=== PATIENT | female | born 1935 | race Caucasian/White ===

== ENCOUNTER 2017-11-05 15:55 | Outpatient (CLI) | payer MEDICARE, BC | END 2017-11-05 15:56 | disposition home or self-care (01) | LOC: BICMAMMO 15:55 | PROVIDERS: ATTEND Family Medicine | DX: Z12.31 Encounter for screening mammogram for malignant neoplasm of breast (principal) | CPT/HCPCS: 77063; G0202; 77067 ==

== ENCOUNTER 2017-12-13 09:54 | Emergency (ER) | payer MEDICARE, BC | END 2017-12-13 10:23 | disposition home or self-care (01) | LOC: SCSER 09:54 | DX: S30.0XXA Contusion of lower back and pelvis, initial encounter (principal); I48.91 Unspecified atrial fibrillation; I10 Essential (primary) hypertension; Z79.899 Other long term (current) drug therapy; Z79.82 Long term (current) use of aspirin; W19.XXXA Unspecified fall, initial encounter | CPT/HCPCS: 99283 ==

== ENCOUNTER 2018-09-02 10:31 | Emergency (ER) | payer MEDICARE, BC ==
[2018-09-02 11:29] LABS: #Basophils 0.1 thou/uL (0.0-0.2); #Eosinphils 0.1 thou/uL (0.0-0.7); #Lymphocytes 1.2 thou/uL (1.20-3.40); #Monocytes 0.8 thou/uL (0.11-0.59); #Neutrophils 6.3 thou/uL (1.40-6.50); %Basophils 1.2 % (0.0-1.0); %Eosinophils 0.8 % (0.0-10.0); %Lymphocytes 14.5 % (21.0-51.0); %Monocytes 9.1 % (0.0-10.0); %Neutrophils 74.4 % (42.0-75.0); Hemoglobin 12.2 g/dL (12.0-16.0); Mean Corpuscular HGB CONC 32.3 g/dL (32.0-36.0); Mean Corpuscular Hemoglobin 32.8 pg (27.0-31.0); Mean Platelet Volume 8.8 fL (7.4-10.4); Platelet Count 121 thou/uL (130-400); RBC Distribution Width 12.6 % (11.5-14.5); Red Blood Cell (RBC) Count 3.73 mill/uL (4.20-5.40); White Blood Cell (WBC) Count 8.4 thou/uL (4.8-10.8)
[2018-09-02 11:40] LABS: ALT (SGPT) 22 U/L (8-55); AST (SGOT) 24 U/L (5-34); Albumin 3.8 g/dL (3.4-4.8); Alkaline Phosphatase 65 U/L (40-150); Anion Gap 13 mmol/L (10-20); BUN (Urea Nitrogen) 21 mg/dL (9.8-20.1); Calc. Creatinine Clearance 0 mL/min (70-130); Calcium 9.4 mg/dL (7.8-10.44); Carbon Dioxide 26 mmol/L (23-31); Chloride 107 mmol/L (98-107); Estimated GFR-MDRD 40; Globulin 2.8 g/dL (2.4-3.5); Glucose 102 mg/dL (83-110); Protein, Total 6.6 g/dL (6.0-8.3); Sodium 141 mmol/L (136-145)
[2018-09-02 11:41] LABS: CKMB 0.7 ng/mL (0-6.6); Troponin I Less than 0.010 ng/mL (< 0.028)
--- NOTE | 2018-09-02 11:42 | RAD ---
LEFT FOREARM 2 VIEWS: Date: 09/02/18 HISTORY: Fall with forearm pain. FINDINGS: There is a joint effusion present in the elbow. It is difficult to definitely demonstrate a fracture on these projections. The possibility of subtle radial head fracture should be considered. No other d efinite findings. IMPRESSION: Elbow joint effusion, questionable slight irregularity to the radial head. POS: [facility]
--- NOTE | 2018-09-02 11:43 | RAD ---
LEFT WRIST 3 VIEWS: Date: 09/02/18 HISTORY: Patient fell with wrist pain. FINDINGS: There are arthritic changes of the wrist. The bones are demineralized. Small bony density on the dors al side of the wrist. I think this is probably related to some calcification in the lunotriquetral li gament. I do not see a definitive fracture. IMPRESSION: No definite signs of fracture. POS: [facility]
--- NOTE | 2018-09-02 11:44 | RAD ---
CHEST TWO VIEWS: History: Fall. Comparison: Chest CT 07-31-17 FINDINGS: New from the comparison examination is lower thoracic vertebral body fracture, likely at T11. Right peripheral pleural blunting is present, new from the CT in 2017. Mild edema. Heart size is enla rged. IMPRESSION: 1. New burst type fracture, likely T11. If the patient is having neurological symptoms, CT would be r ecommended. 2. Mild cardiomegaly and pulmonary edema. 3. Peripheral pleural blunting on the right may be sequellae of a loculated effusion as it has convex borders. Again, CT examination may be helpful in this patient. POS: [facility]
--- NOTE | 2018-09-02 12:12 | RAD ---
LEFT ELBOW FOUR VIEWS: History: Fall. Comparison: None. FINDINGS: There is a moderate sized joint effusion. There is an impacted left radial neck fracture. Bones are o steopenic. IMPRESSION: Impacted left radial neck fracture with large joint effusion. POS: [facility]
[2018-09-02] MEDS ORDERED: HYDROcodone/Acetaminophen 5/325 mg Tablet ONE (14:15)
--- NOTE | 2018-09-02 14:15 | CT ---
CT CERVICAL SPINE PERFORMED WITHOUT CONTRAST ENHANCEMENT: Date: 09/02/18 HISTORY: Neck pain status post fall. FINDINGS: The vertebral bodies are normal in height. Degenerative disc narrowing is seen at C2-3, C3-4, C4-5, a nd some minimal changes at C5-6. The facets appear to be in normal alignment. There is some mild bila teral foraminal stenosis at C4-5. There is no central canal stenosis and there is no CT evidence for fracture. Bilateral apical pleural lung changes appear to be chronic in nature. IMPRESSION: No CT evidence of fracture of the cervical spine. POS: [facility]
--- NOTE | 2018-09-02 14:18 | CT ---
CT THORACIC SPINE PERFORMED WITHOUT CONTRAST ENHANCEMENT: Date: 09/02/18 HISTORY: Back pain after tripping and falling. FINDINGS: The bones are demineralized. There is a severe compression deformity of the T11 vertebral bodies. The re is bony retropulsion by approximately 5.0 mm with a mild to moderate degree of canal narrowing ass ociated with this. The vertebral body is fairly densely sclerotic and appearance is more of an older injury, although definitely not present on a 07/31/17 examination. There are no other bony findings t hat would suggest that this represents a pathologic fracture related to metastatic disease, although this would have to be a consideration. There is no perivertebral soft tissue swelling present. There are atelectatic changes of the right lower lobe. There are chronic appearing lung changes seen. IMPRESSION: 1. Severe bony demineralization. 2. Severe compression deformity of T11 with 5.0 mm of bony retropulsion. The vertebral body itself i s very sclerotic and much of these changes have more of a chronic appearance but they were definitely not present on the 07/31/17 study. The possibility of a pathologic fracture given the rather dense b vannesa sclerosis is not excluded. There is mild to moderate degree of canal stenosis associated with thi s. POS: [facility]
--- NOTE | 2018-09-02 14:26 | CT ---
CT LUMBAR SPINE: HISTORY: Fall. Back pain. FINDINGS: Axial images are obtained with coronal and sagittal reconstructions. CT images again demonstrate the T11 vertebral body fracture. T11-12: Unremarkable. T12-L1: Vacuum disk changes seen. No significant evidence of central or neural foraminal narrowing seen. L1-2: There is some irregularity seen in the inferior end plate of L1. No significant degree of weston tral or neural foraminal narrowing is seen. L2-3: Bilateral facet hypertrophy s seen. There is a mild broad-based disk bulge. Mild central and lateral recess stenosis seen. The neural foramen are patent. L3-4: Disk desiccation is seen. There is disk space height loss. There is broad-based posterior di sk-osteophyte complex compressing the thecal sac resulting in a moderate degree of central and latera l recess stenosis. Mild bilateral neural foraminal narrowing is seen due to facet hypertrophy as wel l as the disk-osteophyte complex at L3-4. L4-5: Disk space height loss is seen. There is a broad-based disk bulge with bilateral facet hypert rophy. Mild to moderate central and lateral recess stenosis seen. Mild to moderate bilateral neural foraminal narrowing is seen. L5-S1: There is bilateral facet hypertrophy seen. The central canal and neural foramen are patent. IMPRESSION: 1. Moderate to severe L3-4 central spinal stenosis. This is due to chronic degenerative changes and is not acute. 2. No acute lumbar spine abnormality seen. Please see accompanying dictation of the thoracic spine. POS: [facility]
== END 2018-09-02 18:40 ==
LOC: SCSER 10:31
DX: S52.125A Nondisplaced fracture of head of left radius, initial encounter for closed fracture (principal); S22.089A Unspecified fracture of T11-T12 vertebra, initial encounter for closed fracture; I10 Essential (primary) hypertension; I48.91 Unspecified atrial fibrillation; Z79.899 Other long term (current) drug therapy; Z79.82 Long term (current) use of aspirin; W01.0XXA Fall on same level from slipping, tripping and stumbling without subsequent striking against object, initial encounter
CPT/HCPCS: 36415; 71046; 72125; 72128; 72131; 80053; 82553; 84484; 85025; 93005; 96360

== ENCOUNTER 2018-09-11 18:00 | Emergency (ER) | payer MEDICARE, BC ==
[2018-09-11 18:40] LABS: #Eosinphils 0.1 thou/uL (0.0-0.7); #Lymphocytes 1.7 thou/uL (1.20-3.40); #Neutrophils 4.7 thou/uL (1.40-6.50); %Basophils 0.5 % (0.0-1.0); %Eosinophils 0.9 % (0.0-10.0); %Lymphocytes 22.6 % (21.0-51.0); %Monocytes 13.1 % (0.0-10.0); %Neutrophils 62.9 % (42.0-75.0); Hemoglobin 13.2 g/dL (12.0-16.0); Mean Corpuscular Hemoglobin 33.6 pg (27.0-31.0); Mean Platelet Volume 7.5 fL (7.4-10.4); Platelet Count 271 thou/uL (130-400); RBC Distribution Width 11.5 % (11.5-14.5); Red Blood Cell (RBC) Count 3.92 mill/uL (4.20-5.40); White Blood Cell (WBC) Count 7.4 thou/uL (4.8-10.8)
[2018-09-11 18:47] LABS: INR-International Normal Ratio 1.5; Prothrombin Time 17.7 SEC (12.0-14.7)
[2018-09-11 18:48] LABS: PTT 33.6 SEC (22.9-36.1)
[2018-09-11] MEDS ORDERED: Metoprolol Tartrate 5 MG/5 ML VIAL ONE (19:04)
[2018-09-11 19:07] LABS: Albumin 3.5 g/dL (3.4-4.8)
[2018-09-11 19:08] LABS: Chloride 101 mmol/L (98-107); Potassium 4.2 mmol/L (3.5-5.1)
[2018-09-11 19:09] LABS: Calcium 9.2 mg/dL (7.8-10.44); Sodium 134 mmol/L (136-145)
[2018-09-11 19:10] LABS: Globulin 3.5 g/dL (2.4-3.5); Glucose 97 mg/dL (83-110)
[2018-09-11 19:11] LABS: Anion Gap 13 mmol/L (10-20); Carbon Dioxide 24 mmol/L (23-31)
[2018-09-11 19:12] LABS: Bilirubin, Total 0.6 mg/dL (0.2-1.2)
[2018-09-11 19:13] LABS: Alkaline Phosphatase 76 U/L (40-150); Calc. Creatinine Clearance 0 mL/min (70-130); Estimated GFR-MDRD 41
[2018-09-11 19:14] LABS: BUN (Urea Nitrogen) 28 mg/dL (9.8-20.1); CKMB 0.7 ng/mL (0-6.6); Troponin I Less than 0.010 ng/mL (< 0.028)
[2018-09-11 19:15] LABS: AST (SGOT) 25 U/L (5-34)
[2018-09-11 19:16] LABS: ALT (SGPT) 16 U/L (8-55); CK (CPK) 35 U/L (29-168); Lipase 41 U/L (8-78)
--- NOTE | 2018-09-11 21:04 | RAD ---
PORTABLE AP CHEST X-RAY 09/11/18 HISTORY: Chest pain. Irregular heart rate. COMPARISON: 09/02/18. FINDINGS: Postsurgical changes related to median sternotomy are again noted. The cardiac silhouette is magnifie d by projection but is mildly enlarged. There is stable symmetric biapical pleural and parenchymal sc arring with stable linear areas of scarring in the right upper lung zone and right mid lung zone. The re is a subtle nodular density overlying the lateral aspect of the left upper lung zone which overlie s the posterior left 6th rib. This was not definitely present on prior exam. Lungs otherwise appear c lear. There is a fracture involving the T11 vertebral body better visualized on prior CT thorax on . No other interval change. IMPRESSION: 1. Suggestion of a nodular density overlying the lateral left upper lung zone. This was not seen on the prior exam. Nonemergent CT thorax is suggested. 2. Mild cardiomegaly. 3. Mild chronic lung changes. 4. Fracture T11 vertebral body better seen on CT thoracic spine on 09/02/18. Code T POS: [facility]
--- NOTE | 2018-09-14 11:22 | EKG ---
Test Reason : Blood Pressure : / mmHG Vent. Rate : 121 BPM Atrial Rate : 117 BPM P-R Int : 000 ms QRS Dur : 120 ms QT Int : 360 ms P-R-T Axes : 000 -65 089 degrees QTc Int : 511 ms Atrial fibrillation with rapid ventricular response Left axis deviation Septal infarct , age undetermined Abnormal ECG Confirmed by PEEWEE ISRAEL, JULIANA ([id number]), publications editor HARRISON AMBROSE ([id number]) on 09/14/2018 11:22:22 AM Referred By: Confirmed By:JULIANA VIDES MD
== END 2018-09-11 19:41 | disposition home or self-care (01) ==
LOC: ERS 18:00
DX: I48.91 Unspecified atrial fibrillation (principal); I10 Essential (primary) hypertension; Z79.899 Other long term (current) drug therapy; Z79.82 Long term (current) use of aspirin
CPT/HCPCS: 71045; 80053; 82550; 82553; 83690; 83880; 84484; 85025; 85610; 85730; 93005; 96374

== ENCOUNTER 2018-09-26 10:02 | Outpatient (CLI) | payer MEDICARE, BC ==
--- NOTE | 2018-09-26 11:50 | RAD ---
THORACIC SPINE THREE VIEWS: History: 82-year-old female with history of T11 compression fracture, S22.000A Comparison: 09-02-[address] scan FINDINGS: Comminuted burst fracture of T11 with greater than 50% vertical height loss with some associated retr opulsion. There is abnormal opacity noted in the right costophrenic angle region, new from prior ches t plain film, 09-11-18, evidence for developing right pleural effusion. Stable biapical pleural thick ening. IMPRESSION: Markedly comminuted burst fracture of T11 with retropulsion. Evidence for moderate sized developing r ight pleural effusion. Stable biapical pleural thickening. Post underlying sternotomy. No significant change in the appearance of the burst fracture when compared to prior CT. Code T POS: [facility]
== END 2018-09-26 10:03 | disposition home or self-care (01) ==
LOC: TBSIIMAG 10:02
PROVIDERS: ATTEND Neurological Surgery
DX: S22.081D Stable burst fracture of T11-T12 vertebra, subsequent encounter for fracture with routine healing (principal); J90 Pleural effusion, not elsewhere classified; R91.8 Other nonspecific abnormal finding of lung field; Z98.890 Other specified postprocedural states
CPT/HCPCS: 72072

== ENCOUNTER 2018-10-17 09:08 | Outpatient (CLI) | payer MEDICARE, BC ==
--- NOTE | 2018-10-17 10:07 | CT ---
CT THORACIC SPINE WITHOUT CONTRAST: Date: 10/17/18 COMPARISON: 09/02/18. HISTORY: T11 compression fracture after fall in August. TECHNIQUE: Multiple contiguous axial images were obtained in a CT of the thoracic spine without contrast. Sagitt al and coronal reformats were performed. FINDINGS: There is a stable burst fracture of the T11 vertebral body with approximately 75% anterior height los s. The other vertebral bodies demonstrate normal height. There is no significant subluxation. There i s stable retropulsion of the posterior aspect of the vertebral body into the central canal of approxi mately 6.0 mm. No significant posterior osteophytes are seen. No other areas of narrowing of the central canal are s een. No bony narrowing of the neural foramina seen. IMPRESSION: Stable T11 compression/burst fracture. POS: [facility]
== END 2018-10-17 09:09 | disposition home or self-care (01) ==
LOC: CT 09:08
PROVIDERS: ATTEND Neurological Surgery
DX: S22.089D Unspecified fracture of T11-T12 vertebra, subsequent encounter for fracture with routine healing (principal)
CPT/HCPCS: 72128

== ENCOUNTER 2018-10-25 09:37 | Day surgery (SDC) | payer MEDICARE, BC ==
[2018-10-24 08:32] VITALS: BMI 22.6
[2018-10-25] MEDS ORDERED: Lidocaine 1% (PF) 30 ML VIAL ONE (10:07)
[2018-10-25 10:10] LABS: #Eosinphils 0.1 thou/uL (0.0-0.7); #Lymphocytes 1.4 thou/uL (1.20-3.40); #Monocytes 0.4 thou/uL (0.11-0.59); #Neutrophils 2.9 thou/uL (1.40-6.50); %Basophils 0.4 % (0.0-1.0); %Eosinophils 1.3 % (0.0-10.0); %Lymphocytes 28.6 % (21.0-51.0); %Monocytes 9.1 % (0.0-10.0); %Neutrophils 60.5 % (42.0-75.0); Hemoglobin 12.9 g/dL (12.0-16.0); Mean Corpuscular HGB CONC 34.2 g/dL (32.0-36.0); Mean Corpuscular Hemoglobin 35.1 pg (27.0-31.0); Mean Platelet Volume 7.6 fL (7.4-10.4); Platelet Count 177 thou/uL (130-400); RBC Distribution Width 12.6 % (11.5-14.5); Red Blood Cell (RBC) Count 3.68 mill/uL (4.20-5.40); White Blood Cell (WBC) Count 4.8 thou/uL (4.8-10.8)
[2018-10-25 10:13] LABS: INR-International Normal Ratio 1.1; PTT 30.1 SEC (22.9-36.1); Prothrombin Time 14.2 SEC (12.0-14.7)
[2018-10-25] MEDS ORDERED: Fentanyl 100 MCG/2 ML VIAL ONE (10:19)
[2018-10-25 10:24] LABS: Anion Gap 12 mmol/L (10-20); BUN (Urea Nitrogen) 23 mg/dL (9.8-20.1); Calc. Creatinine Clearance 32 mL/min (70-130); Calcium 9.2 mg/dL (7.8-10.44); Carbon Dioxide 25 mmol/L (23-31); Chloride 107 mmol/L (98-107); Estimated GFR-MDRD 46; Glucose 98 mg/dL (83-110); Potassium 4.5 mmol/L (3.5-5.1); Sodium 139 mmol/L (136-145)
[2018-10-25] MEDS ORDERED: Propofol 500 MG/50 ML VIAL ONE (10:34)
[2018-10-25] MEDS ORDERED: Lidocaine 1% PF 5 ML VIAL ONE (13:19)
[2018-10-25] MEDS ORDERED: PROPOFOL 200 MG/20 ML VIAL ONE (13:19)
[2018-10-25] MEDS ORDERED: Iopamidol 370 76% 50 ML VIAL FS ONE (13:27)
[2018-10-25] MEDS ORDERED: Acetaminophen/Codeine 30-300mg Tablet ONE (15:34)
--- NOTE | 2018-10-25 15:45 | RAD ---
FRONTAL RADIOGRAPH CHEST: Date: 10/25/18 COMPARISON: 09/11/18. HISTORY: Evaluate chest following placement of a pacemaker. FINDINGS: There is a new three lead transvenous pacing device inserted via left subclavian approach with leads overlying the region of the right atrium and right ventricle and the coronary sinus. There is new german nting of the costophrenic angle on the right suggesting right pleural effusion, possibly loculated, e xtending superiorly to involve the inferior third of the right hemithorax laterally. Midline sternoto my wires are present. No evidence for pneumothorax. IMPRESSION: Transvenous pacing device as above. Increased density noted in the right costophrenic angle suggestin g a right pleural effusion, probably loculated. POS: [facility]
== END 2018-10-25 17:04 | disposition home or self-care (01) ==
LOC: CCL 09:37
PROVIDERS: ATTEND Internal Medicine Cardiovascular Disease
PROC: 0JH606Z Insertion of Pacemaker, Dual Chamber into Chest Subcutaneous Tissue and Fascia, Open Approach (ICD-10-PCS; principal; 2018-10-25)
PROC: 02H63JZ Insertion of Pacemaker Lead into Right Atrium, Percutaneous Approach (ICD-10-PCS; 2018-10-25)
PROC: 02HK3JZ Insertion of Pacemaker Lead into Right Ventricle, Percutaneous Approach (ICD-10-PCS; 2018-10-25)
PROC: 02H43JZ Insertion of Pacemaker Lead into Coronary Vein, Percutaneous Approach (ICD-10-PCS; 2018-10-25)
DX: I50.42 Chronic combined systolic (congestive) and diastolic (congestive) heart failure (principal); I25.5 Ischemic cardiomyopathy; I48.0 Paroxysmal atrial fibrillation; I49.5 Sick sinus syndrome; M85.80 Other specified disorders of bone density and structure, unspecified site; M19.90 Unspecified osteoarthritis, unspecified site; E78.5 Hyperlipidemia, unspecified; Z79.82 Long term (current) use of aspirin; Z79.01 Long term (current) use of anticoagulants; Z79.899 Other long term (current) drug therapy; Z88.0 Allergy status to penicillin; Z95.1 Presence of aortocoronary bypass graft
CPT/HCPCS: 33208; 33224; 36005; 71045; 75820; 80048; 85025; 85610; 85730; C1769; C1882; C1898; C1900; J2001; J2704; J3010; J3370; J3490

== ENCOUNTER 2019-01-09 14:22 | Outpatient (CLI) | payer MEDICARE, BC | END 2019-01-09 14:23 | disposition home or self-care (01) | LOC: BICMAMMO 14:22 | PROVIDERS: ATTEND Family Medicine | DX: Z12.31 Encounter for screening mammogram for malignant neoplasm of breast (principal) | CPT/HCPCS: 77063; 77067 ==

== ENCOUNTER 2019-02-28 14:56 | Outpatient (CLI) | payer MEDICARE, BC ==
[2019-02-28] MEDS ORDERED: Iopamidol 370 76% 100 ML VIAL ONE (15:09)
--- NOTE | 2019-02-28 16:21 | CT ---
Chest CT scan with IV contrast: HISTORY: Follow-up nodule FINDINGS: The previously noted noted pleural fluid as essentially totally resolved. The previously noted subple ural nodular density in the left lower lobe has resolved and presumably represented some focal fluid. Small stable right middle lobe nodule and some nodular and linear changes in the lingula. Stab le cardiomegaly. No mediastinal mass or adenopathy. Visualized upper abdomen is unremarkable. IMPRESSION: Resolution of the bilateral pleural fluid and pleural-based nodular densities on prior study. Small s table nodular density in the right middle lobe and minimal scarring in the lingula. Stable cardiomegaly. No significant new process.
== END 2019-02-28 14:57 | disposition home or self-care (01) ==
LOC: BICCT 14:56
PROVIDERS: ATTEND Family Medicine
DX: R91.8 Other nonspecific abnormal finding of lung field (principal); I51.7 Cardiomegaly; J94.8 Other specified pleural conditions
CPT/HCPCS: 71260; 82565; Q9967

== ENCOUNTER 2019-10-30 07:12 | Outpatient (CLI) | payer MEDICARE, BC ==
[2019-10-30 12:01] LABS: Hemoglobin 13.6 g/dL (12.0-16.0); Mean Corpuscular HGB CONC 32.4 g/dL (32.0-36.0); Mean Corpuscular Hemoglobin 34.1 pg (27.0-31.0); Mean Platelet Volume 8.2 fL (7.4-10.4); Platelet Count 136 thou/uL (130-400); RBC Distribution Width 12.7 % (11.5-14.5); Red Blood Cell (RBC) Count 3.99 mill/uL (4.20-5.40); White Blood Cell (WBC) Count 6.3 thou/uL (4.8-10.8)
[2019-10-30 12:17] LABS: INR-International Normal Ratio 1.2; PTT 29.9 SEC (22.9-36.1); Prothrombin Time 15.6 SEC (12.0-14.7)
[2019-10-30 12:27] LABS: Anion Gap 12 mmol/L (10-20); BUN (Urea Nitrogen) 24 mg/dL (9.8-20.1); Calc. Creatinine Clearance 0 mL/min (70-130); Calcium 9.8 mg/dL (7.8-10.44); Carbon Dioxide 27 mmol/L (23-31); Chloride 104 mmol/L (98-107); Estimated GFR-MDRD 50; Glucose 93 mg/dL (83-110); Potassium 4.3 mmol/L (3.5-5.1); Sodium 139 mmol/L (136-145)
== END 2019-10-30 07:13 | disposition home or self-care (01) ==
LOC: LABBT 07:12
PROVIDERS: ATTEND Internal Medicine Cardiovascular Disease
DX: Z01.812 Encounter for preprocedural laboratory examination (principal); I44.7 Left bundle-branch block, unspecified
CPT/HCPCS: 80048; 85027; 85610; 85730

== ENCOUNTER 2019-10-31 11:08 | Day surgery (SDC) | payer MEDICARE, BC ==
[2019-10-30 10:30] VITALS: BMI 22.2
[2019-10-31] MEDS ORDERED: PROPOFOL 200 MG/20 ML VIAL ONE (12:52)
[2019-10-31] MEDS ORDERED: Lidocaine 1% PF 5 ML VIAL ONE (12:52)
--- NOTE | 2019-10-31 13:47 | OP ---
DATE OF PROCEDURE: 10/31/2019 PROCEDURE PERFORMED: Cardioversion. ADDITIONAL REFERRING PHYSICIAN: Abdoulaye Fields MD REASON FOR PROCEDURE: Ms. 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 She has after amiodarone loading and be attempting restoring sinus rhythm. DESCRIPTION OF PROCEDURE: The patient received propofol by Anesthesia specialist. After adequate level of sedation achieved, a synchronized 100-joule shock promptly converted the patient back to sinus rhythm. CONCLUSION: Successful cardioversion. PLAN: Continue on oral anticoagulation and amiodarone. The patient advised to have periodic liver, thyroid, lung, and optic nerve checks. Job ID: [id number]
== END 2019-10-31 14:15 | disposition home or self-care (01) ==
LOC: CCL 11:08
PROVIDERS: ATTEND Internal Medicine Cardiovascular Disease
PROC: 5A2204Z Restoration of Cardiac Rhythm, Single (ICD-10-PCS; principal; 2019-10-31)
DX: I48.19 Other persistent atrial fibrillation (principal); Z79.01 Long term (current) use of anticoagulants; Z79.82 Long term (current) use of aspirin; Z79.899 Other long term (current) drug therapy; Z88.0 Allergy status to penicillin; Z95.0 Presence of cardiac pacemaker
CPT/HCPCS: 92960; J2001; J2704

== ENCOUNTER 2019-12-31 07:47 | Outpatient (CLI) | payer MEDICARE, BC ==
[2019-12-31 14:05] LABS: Hemoglobin 14.2 g/dL (12.0-16.0); Mean Corpuscular HGB CONC 34.1 g/dL (32.0-36.0); Mean Corpuscular Hemoglobin 35.4 pg (27.0-31.0); Platelet Count 133 thou/uL (130-400); RBC Distribution Width 12.8 % (11.5-14.5); White Blood Cell (WBC) Count 5.3 thou/uL (4.8-10.8)
[2019-12-31 14:12] LABS: INR-International Normal Ratio 1.1; PTT 28.3 SEC (22.9-36.1); Prothrombin Time 14.1 SEC (12.0-14.7)
[2019-12-31 14:34] LABS: Anion Gap 11 mmol/L (10-20); BUN (Urea Nitrogen) 34 mg/dL (9.8-20.1); Calc. Creatinine Clearance 0 mL/min (70-130); Calcium 9.6 mg/dL (7.8-10.44); Carbon Dioxide 29 mmol/L (23-31); Chloride 104 mmol/L (98-107); Estimated GFR-MDRD 46; Glucose 91 mg/dL (83-110); Potassium 4.3 mmol/L (3.5-5.1); Sodium 140 mmol/L (136-145)
== END 2019-12-31 07:48 | disposition home or self-care (01) ==
LOC: LABBT 07:47
PROVIDERS: ATTEND Internal Medicine Cardiovascular Disease
DX: Z01.818 Encounter for other preprocedural examination (principal); I48.91 Unspecified atrial fibrillation
CPT/HCPCS: 80048; 85027; 85610; 85730; 93005; 93010

== ENCOUNTER → 2020-01-05 | Day surgery (SDC) | payer MEDICARE, BC ==
[2019-12-31 12:12] VITALS: BMI 21.9
[~2020-01-05] MED LIST: DOPamine 400 MG/D5W 250 ML 250 ML ONE; Fentanyl 100 MCG/2 ML VIAL ONE; Heparin (Artline) 1,000 ML ONE; Lidocaine 1% (PF) 30 ML VIAL ONE; Lidocaine 1% PF 5 ML VIAL ONE; Midazolam HCl 2 mg/2 ml Vial ONE; Morphine 2 MG/ML SYRINGE ONE; Morphine 2 MG/ML SYRINGE SLOW IVP PRN; Nitroglycerin 2% Ointment 1 INCH/1 GM Packet TOP PRN; Ondansetron PF 4 MG/2 ML Vial ONE; PROPOFOL 20 ML ONE; PROPOFOL 200 MG/20 ML VIAL ONE
--- NOTE | 2020-01-05 16:30 | OP ---
DATE OF PROCEDURE: 01/05/2020 PROCEDURE PERFORMED: AV papito ablation. ADDITIONAL REFERRING PHYSICIAN: Abdoulaye Fields MD REASON FOR PROCEDURE: Ms. Khan is an 84-year-old woman with history of paroxysmal atrial fibrillation Multaq and amiodarone now persisting. 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 She is still on amiodarone despite has recurrent atrial fibrillation episodes. She is here for AV papito ablation. DESCRIPTION OF PROCEDURE: The patient received propofol by Anesthesia specialist. After adequate level of sedation achieved, the right femoral venous area was prepped, draped, and anesthetized using subcutaneous lidocaine. Under ultrasound guidance, the right femoral vein was cannulated and an 8-Arabic short sheath was introduced. Through this, a Thermocool SF catheter was advanced to the right atrium. 3D map of the right atrium, His bundle, and CS os was obtained. Careful attention was paid not to damage the preexistent pacemaker leads. Radiofrequency ablation was delivered, total of 4 lesions at 2 minutes 50 seconds in duration achieving AV block, junctional escape rhythm was seen, following the application of the energy at about 45 beats per minute. Following that, the pacemaker function was verified. Cardiac silhouette did not change with the procedure. The sheaths were pulled and Vascade closure device was used to obtain hemostasis. The patient tolerated the procedure well. CONCLUSION: 1. Successful AV papito ablation. 2. Adequate biventricular pacemaker function. PLAN: Resume anticoagulation and monitor for any recurrent AV papito conduction. Job ID: [id number]
--- NOTE | 2020-01-05 16:56 | EKG ---
Test Reason : S/P ABLAT WITH C/P Blood Pressure : / mmHG Vent. Rate : 070 BPM Atrial Rate : 071 BPM P-R Int : 000 ms QRS Dur : 144 ms QT Int : 468 ms P-R-T Axes : 000 -77 085 degrees QTc Int : 505 ms Ventricular-paced rhythm Abnormal ECG Confirmed by BRIAN KAHN ([id number]) on 01/05/2020 4:55:59 PM Referred By: [facility] Confirmed By:BRIAN KAHN
== END ==
LOC: CCL 09:17
PROVIDERS: ATTEND Internal Medicine Cardiovascular Disease
PROC: 02583ZZ Destruction of Conduction Mechanism, Percutaneous Approach (ICD-10-PCS; principal; 2020-01-05)
DX: I48.0 Paroxysmal atrial fibrillation (principal); I25.10 Atherosclerotic heart disease of native coronary artery without angina pectoris; Z79.01 Long term (current) use of anticoagulants; Z79.82 Long term (current) use of aspirin; Z79.899 Other long term (current) drug therapy; Z88.0 Allergy status to penicillin; Z95.0 Presence of cardiac pacemaker; Z95.1 Presence of aortocoronary bypass graft
CPT/HCPCS: 76942; 93005; 93010; 93613; 93650; C1732; C1769; J1265; J1644; J2001; J2250; J2270; J2405; J2704; J3010

== ENCOUNTER 2020-01-12 09:13 | Outpatient (CLI) | payer MEDICARE, BC ==
--- NOTE | 2020-01-12 10:13 | MMO ---
Bilateral MAMMO Bilat Screen [facility]. CLINICAL HISTORY: Patient is 84 years old and is seen for screening. The patient has no family history of breast cancer. The patient has no personal history of cancer. VIEWS: The views performed were: bilateral craniocaudal with tomosynthesis; bilateral mediolateral oblique with tomosynthesis; right mediolateral oblique; and right exaggerated craniocaudal. FILMS COMPARED: The present examination has been compared to prior imaging studies performed at [facility] on 11/01/2015, 11/02/2016, 11/05/2017 and 01/09/2019. This study has been interpreted with the assistance of computer-aided detection. MAMMOGRAM FINDINGS: The breasts are heterogeneously dense, which could obscure a lesion on mammography. There are no suspicious masses, suspicious calcifications, or new areas of architectural distortion. IMPRESSION: THERE IS NO MAMMOGRAPHIC EVIDENCE OF MALIGNANCY. A ROUTINE FOLLOW-UP MAMMOGRAM IN 1 YEAR IS RECOMMENDED. THE RESULTS OF THIS EXAM WERE SENT TO THE PATIENT. ACR BI-RADS Category 1 - Negative MAMMOGRAPHY NOTE: 1. A negative mammogram report should not delay a biopsy if a dominant of clinically suspicious mass is present. 2. Approximately 10% to 15% of breast cancers are not detected by mammography. 3. Adenosis and dense breasts may obscure an underlying neoplasm. Reported by: Chavez CERON Electonically Signed: [id number]
== END 2020-01-12 09:14 | disposition home or self-care (01) ==
LOC: BICMAMMO 09:13
PROVIDERS: ATTEND Family Medicine
DX: Z12.31 Encounter for screening mammogram for malignant neoplasm of breast (principal)
CPT/HCPCS: 77063; 77067

== ENCOUNTER 2020-01-16 11:51 | Outpatient (CLI) | payer MEDICARE, BC ==
--- NOTE | 2020-01-16 12:24 | RAD ---
2 views of the left hip: 01/16/2020 COMPARISON: 01/18/2016 HISTORY: Left hip pain FINDINGS: Postoperative clips are noted in the left inguinal region and medial left thigh. There is m oderate superior joint space narrowing with mild lateral acetabular osteophyte formation on the left, unchanged when compared to the 01/18/2016 exam. Stable atherosclerotic calcification is noted inf erior to the femoral head. No displaced fracture or dislocation. The oblique image demonstrates osteophyte formation involving the acetabulum and femoral head inferiorly as well. IMPRESSION: Chronic findings as detailed above. No acute fracture or dislocation.
== END 2020-01-16 11:52 | disposition home or self-care (01) ==
LOC: BICRAD 11:51
PROVIDERS: ATTEND Family Medicine
DX: M25.552 Pain in left hip (principal); M25.752 Osteophyte, left hip; I70.202 Unspecified atherosclerosis of native arteries of extremities, left leg; M25.852 Other specified joint disorders, left hip; Z98.890 Other specified postprocedural states

== ENCOUNTER 2020-02-02 11:56 | Outpatient (CLI) | payer MEDICARE, BC ==
--- NOTE | 2020-02-02 12:16 | RAD ---
2 views right calcaneus: 02/02/2020 COMPARISON: None HISTORY: Pain in the right heel since Sunday, worsening with no history of trauma/injury FINDINGS: The bones are demineralized. There is enthesophyte formation at the origin of the plantar a poneurosis and insertion of the Achilles tendon. There is mild linear calcification along the course of the distal right Achilles tendon and along the expected course of the posterior aspect of t he plantar aponeurosis. IMPRESSION: No fracture or evidence of dislocation. Calcaneal enthesophyte formation and soft tissue calcification as detailed above.
== END 2020-02-02 11:57 | disposition home or self-care (01) ==
LOC: SCSRAD 11:56
PROVIDERS: ATTEND Family Medicine
DX: M79.671 Pain in right foot (principal); M79.9 Soft tissue disorder, unspecified; M77.9 Enthesopathy, unspecified

== ENCOUNTER 2021-01-13 09:00 | Outpatient (CLI) | payer BC, MEDICARE ==
--- NOTE | 2021-01-13 09:53 | MMO ---
Bilateral MAMMO Bilat Screen [facility]. CLINICAL HISTORY: Patient is 85 years old and is seen for screening. The patient has no family history of breast cancer. The patient has no personal history of cancer. VIEWS: The views performed were: bilateral craniocaudal with tomosynthesis and bilateral mediolateral oblique with tomosynthesis. FILMS COMPARED: The present examination has been compared to prior imaging studies performed at [facility] on 11/02/2016, 11/05/2017, 01/09/2019 and 01/12/2020. This study has been interpreted with the assistance of computer-aided detection. MAMMOGRAM FINDINGS: The breasts are extremely dense, which may lower the sensitivity of mammography. There are stable benign appearing calcifications seen in both breasts. There are also vascular calcifications. There are no suspicious masses, suspicious calcifications, or new areas of architectural distortion. IMPRESSION: THERE IS NO MAMMOGRAPHIC EVIDENCE OF MALIGNANCY. A ROUTINE FOLLOW-UP MAMMOGRAM IN 1 YEAR IS RECOMMENDED. THE RESULTS OF THIS EXAM WERE SENT TO THE PATIENT. ACR BI-RADS Category 2 - Benign finding MAMMOGRAPHY NOTE: 1. A negative mammogram report should not delay a biopsy if a dominant of clinically suspicious mass is present. 2. Approximately 10% to 15% of breast cancers are not detected by mammography. 3. Adenosis and dense breasts may obscure an underlying neoplasm. Reported by: JESSICA THOMPSON MD Electonically Signed: [id number]
== END 2021-01-13 09:01 | disposition home or self-care (01) ==
LOC: BICMAMMO 09:00
PROVIDERS: ATTEND Family Medicine
DX: Z12.31 Encounter for screening mammogram for malignant neoplasm of breast (principal)
CPT/HCPCS: 77063; 77067

== ENCOUNTER 2022-07-12 14:55 | Outpatient (CLI) | payer MEDICARE | END 2022-07-12 14:56 | disposition home or self-care (01) | LOC: BICRAD 14:55 | PROVIDERS: ATTEND Nurse Practitioner Family | DX: R07.89 Other chest pain (principal) | CPT/HCPCS: 71046 ==

== ENCOUNTER 2023-01-26 10:55 | Outpatient (CLI) | payer MEDICARE | END 2023-01-26 10:56 | disposition home or self-care (01) | LOC: BICMAMMO 10:55 | PROVIDERS: ATTEND Family Medicine | DX: Z12.31 Encounter for screening mammogram for malignant neoplasm of breast (principal) | CPT/HCPCS: 77063; 77067 ==

== ENCOUNTER 2023-07-30 14:15 | Outpatient (CLI) | payer MEDICARE | END 2023-07-30 14:16 | disposition home or self-care (01) | LOC: RAD 14:15 | PROVIDERS: ATTEND Family Medicine | DX: R76.11 Nonspecific reaction to tuberculin skin test without active tuberculosis (principal) | CPT/HCPCS: 71046 ==

== ENCOUNTER 2024-11-14 09:06 | Outpatient (CLI) | payer MEDICARE | END 2024-11-14 09:07 | disposition home or self-care (01) | LOC: BICRAD 09:06 | PROVIDERS: ATTEND Family Medicine | DX: R76.11 Nonspecific reaction to tuberculin skin test without active tuberculosis (principal); J90 Pleural effusion, not elsewhere classified; J44.9 Chronic obstructive pulmonary disease, unspecified | CPT/HCPCS: 71046 ==